=== PATIENT | female | born 1965 | race Caucasian/White ===

== ENCOUNTER 2022-08-25 14:33 | Emergency (ER) | payer BC, OTHER | END 2022-08-25 16:15 | disposition short-term general hospital (02) | LOC: VM.ED 14:33 | DX: S82.842A Displaced bimalleolar fracture of left lower leg, initial encounter for closed fracture (principal); W00.9XXA Unspecified fall due to ice and snow, initial encounter | CPT/HCPCS: 73610-LT; 99283; 99284 ==